=== PATIENT | male | born 1955 | race Caucasian/White ===

== ENCOUNTER 2017-04-23 06:09 | Day surgery (SDC) | payer OTHER ==
[~2017-04-23] VITALS: Ht 185.4 cm; Wt 79.1 kg
[2017-04-23 06:51] VITALS: BP 102/63; PULSE 89; RESP 20; TEMP 98.8; O2SAT 98
[2017-04-23] MEDS ORDERED: ATOR40TA16 PO (07:00)
[2017-04-23] MEDS ORDERED: LISI2.5T3 PO (07:00)
[2017-04-23] MEDS ORDERED: GABA300C5 PO (07:00)
[2017-04-23] MEDS ORDERED: OMEG300C5 (07:00)
[2017-04-23] MEDS ORDERED: MAGN400T2 PO (07:00)
[2017-04-23] MEDS ORDERED: TRAD5TAB PO (07:00)
[2017-04-23] MEDS ORDERED: HYDR25TA5 PO (07:00)
[2017-04-23] MEDS ORDERED: ALPR0.25 PO (07:00)
[2017-04-23] MEDS ORDERED: MORP1TAB25 PO (07:00)
[2017-04-23] MEDS ORDERED: TIZA4CAP3 PO (07:00)
[2017-04-23] MEDS ORDERED: METF1000 PO (07:00)
[2017-04-23] MEDS ORDERED: OXYC-395 PO (07:00)
[2017-04-23] MEDS ORDERED: ASPI81CH CHEW (07:00)
[2017-04-23] MEDS ORDERED: VANCOMYCIN 1000 MG/NS 250 ML - implanted port/tunneled catheter IV SCH ×2 (07:30)
[2017-04-23] MEDS ORDERED: CHLORHEXIDINE GLUCONATE 2 % 1 PACK (2 CLOTHS) TOPICAL SCH (07:30)
[2017-04-23] MEDS ORDERED: SODIUM CHLORIDE 0.9% 1000 ML IV SCH (07:30)
[2017-04-23] MEDS ORDERED: POVIDONE IODINE 5% (ANTISEPSIS KIT) 4 APPLICATIONS EACH NARE SCH (07:30)
[2017-04-23 07:34] LABS: AUTOMATED NEUTROPHIL # 10.2 TH/MM3 (1.8-7.7); BASOPHIL # 0.1 TH/MM3 (0-0.2); BASOPHIL % 0.6 % (0.0-2.0); EOSINOPHIL # 0.1 TH/MM3 (0-0.4); HEMATOCRIT 40.5 % (39.0-51.0); HEMO FLAGS DIFF FINAL; LYMPH % 10.2 % (9.0-44.0); LYMPHOCYTE # 1.3 TH/MM3 (1.0-4.8); MEAN CELL VOLUME 90.6 FL (80.0-100.0); MEAN CORPUSCULAR HGB CONC 33.1 % (32.0-36.0); MONO % 5.3 % (0.0-8.0); NEUT % 82.9 % (16.0-70.0); PLATELET COUNT 310 TH/MM3 (150-450); RED BLOOD COUNT 4.47 MIL/MM3 (4.50-5.90); RED CELL DISTRIBUTION WIDTH 14.8 % (11.6-17.2); WHITE BLOOD COUNT 12.4 TH/MM3 (4.0-11.0)
[2017-04-23 07:46] LABS: APTT (PATIENT) 29.2 SEC (24.3-30.1); PROTHROMBIN TIME - PATIENT 10.5 SEC (9.8-11.6)
[2017-04-23] MEDS ORDERED: MIDAZOLAM HCL 2 MG/2 ML VIAL ONE ×2 (08:01)
[2017-04-23] MEDS ORDERED: SODIUM CHLORIDE 0.9% FLUSH 10 ML FLUSH IVF PRN (09:15)
--- NOTE | 2017-04-23 09:15 | PD.RAD ---
Post Procedure Progress Note Pre Procedure Diagnosis: (1) Melanoma Post Procedure Diagnosis: (1) Melanoma Procedure Date: Apr 23, 2017 Supervising Radiologist: Brennan Newsome JR Proceduralist/Assist: Miguel Machuca, RT(R), Mar Hinojosa RT(R) Anesthesia: Conscious Sedation Plan of Activity Patient to Unit: ROPU Patient Condition: Good See PACS Report for procedural detail/treatment Central Venous Access Device Procedure 1 Right Internal Jugular Infusaport Placement single lumen Maltese: 8 Findings: Port in good position and functions well. OK to use. Plan F/U with IR in 10-14 days for a site check Jr. Jerod,Brennan Hammond MD Apr 23, 2017 09:15
[2017-04-23 09:30] VITALS: BP 108/63; PULSE 82; RESP 16; TEMP 97.7; O2SAT 93
[2017-04-23 09:45] VITALS: BP 116/69; PULSE 86; RESP 16; O2SAT 93
[2017-04-23 10:00] VITALS: BP 112/68; PULSE 85; RESP 16; O2SAT 93
--- NOTE | 2017-04-23 10:03 | RADRPT ---
EXAM DATE/TIME: 04/23/2017 08:44 [facility] COMPARISON: No previous studies available for comparison. INDICATIONS : Patient presents with malignant melanoma in need of port placement for chemotherapy treatment. MEDICAL HISTORY : Smoking history CAD Mediastinal mass Anxiety COPD CO HTN DM SURGICAL HISTORY : CABG Right hip ENCOUNTER: Initial ACUITY: 2 months PAIN SCORE: 5/10 LOCATION: Neck FLUORO TIME: 0.4 minutes IMAGE SERIES: 0 SEDATION TIME: 15 minutes ACCESS: Right internal jugular vein SEDATION: 1.) 1 mg midazolam (Versed) IV 2.) 50 mcg fentanyl (Sublimaze) IV Prophylactic antibiotics were administered with appropriate pre-procedure timing. Vancomycin within 2 hours of procedure, Ancef (or alternative) within 1 hour of procedure. DEVICE: 1. 8 [place] single lumen Smart port CT w/vortex PROCEDURE : 1. Continuous pulse oximetry and EKG monitoring. 2. Intravenous conscious sedation. 3. Ultrasound guidance for venous access. 4. Fluoroscopic guided implantable central venous port placement. The patient was placed supine. The neck was prepped in sterile fashion. Full sterile technique was u sed, including cap, mask, sterile gloves and gown, and a large sterile sheet. Hand hygiene and 2% ch lorhexidine Betadine was utilized per protocol for cutaneous antisepsis with appropriate dry time for site. Sterile gel and sterile probe cover were utilized for ultrasound guidance. The skin and sub cutaneous tissues were infiltrated with local anesthetic solution. Under direct ultrasound guidance, central venous access was accomplished in the targeted vessel. The ultrasound images depicting access guidance were stored and saved to PACS for permanent record. A s ubcutaneous pocket was created using blunt dissection. The port was introduced to the pocket. The c atheter tubing was fed through a subcutaneous tunnel to the venotomy site. The catheter tubing was c ut to a suitable length and then was introduced through a valved Peel-Away sheath and positioned with catheter tubing tip at the cavo-atrial junction level. The pocket incision was closed with subcutic ular Vicryl suture. Steri-Strips were applied. The port was flushed and locked with heparin solutio n per protocol. Sterile dressing was applied to the site. The patient tolerated the procedure well. Conscious sedation was performed with the prescribed dosages and duration as above in the presence of an independent trained radiology nurse to assist in the monitoring of the patient. EKG and oximetry remained stable throughout the procedure. The patient tolerated the procedure well and there were no complications. The patient was sent to post anesthesia recovery in stable condition. CONCLUSION: Uncomplicated ultrasound and fluoroscopic guided implanted central venous port catheter placement as described in detail above. An 8 Naur[place] Power port was placed. Brennan Newsome Jr., MD on April 23, 2017 at 10:01 Board Certified Radiologist. This report was verified electronically.
[2017-04-23 10:30] VITALS: BP 98/66; PULSE 79; RESP 16; O2SAT 93
[2017-04-23 11:00] VITALS: BP 101/72; PULSE 76; RESP 16; O2SAT 93
== END 2017-04-23 11:30 | disposition home or self-care (01) ==
LOC: HROP 06:09 → HRIP 06:13 → HROP 11:30
PROVIDERS: ATTEND Internal Medicine
DX: Z45.2 Encounter for adjustment and management of vascular access device (principal); C43.9 Malignant melanoma of skin, unspecified; I10 Essential (primary) hypertension; E11.9 Type 2 diabetes mellitus without complications; J44.9 Chronic obstructive pulmonary disease, unspecified; Z79.84 Long term (current) use of oral hypoglycemic drugs
CPT/HCPCS: 36561; 76937; 77001; 85025; 85610; 85730; 99152; C1788; J1642; J2250; J3010; J3370; J7030; J7050